=== PATIENT | male | born 1965 | race Caucasian/White ===

== ENCOUNTER 2022-11-26 06:30 | Day surgery (SDC) | payer BC ==
[2022-11-24 15:19] LABS: BASOPHILS # (AUTO) 0.04 K/uL (0.00-0.20); BASOPHILS % (AUTO) 0.7 % (0.0-5.0); EOSINOPHILS % (AUTO) 1.7 % (0.0-8.0); HEMATOCRIT 44.5 % (42-54); IMMATURE GRANULOCYTE ABSOLUTE 0.02 K/uL (0-1); LYMPHOCYTES # (AUTO) 1.6 K/uL (1.0-4.8); LYMPHOCYTES % (AUTO) 26.5 % (21.0-51.0); MEAN CORPUSCULAR HEMOGLOBIN 30.2 pg (27.0-33.0); MEAN CORPUSCULAR HGB CONC 34.2 g/dL (32.0-36.0); MEAN CORPUSCULAR VOLUME 88.5 fL (79-99); MONOCYTES # (AUTO) 0.6 K/uL (0.1-1.0); MONOCYTES % (AUTO) 9.3 % (3.0-13.0); NEUTROPHILS # (AUTO) 3.6 K/uL (1.8-7.7); NEUTROPHILS % (AUTO) 61.5 % (40.0-77.0); PLATELET COUNT (AUTO) 257 K/uL (130-400); RED BLOOD CELL COUNT(AUTO) 5.03 MIL/uL (4.50-6.20); RED CELL DISTRIBUTION WIDTH 12.7 % (11.0-15.5); WHITE BLOOD COUNT (AUTO) 5.9 K/uL (4.8-10.8)
[2022-11-24 15:27] LABS: CREATININE 1.1 mg/dL (0.5-1.5); POTASSIUM 4.2 mmol/L (3.5-5.1)
[2022-11-24 15:29] VITALS: BP 114/89; PULSE 66; RESP 12
[2022-11-24 15:29] LABS: INR 0.94 (0.85-1.15); PROTHROMBIN TIME 10.9 SEC (9.6-11.6)
[2022-11-24 15:30] LABS: PARTIAL THROMBOPLASTIN TIME 30.2 SEC (26.3-35.5)
[~2022-11-26] VITALS: Ht 182.9 cm; Wt 87.9 kg
[2022-11-26] VITALS (18 sets, daily range): BP systolic 97–138; BP diastolic 58–87; PULSE 64–76; RESP 12–16
[2022-11-26] MEDS ORDERED: LACTATED RINGERS 1000ML 1,000 ML IV ONE (06:31)
[2022-11-26] MEDS ORDERED: CEFAZOLIN SODIUM 2 GM VIAL ONE (06:31)
[2022-11-26] MEDS ORDERED: BUPIVACAINE/PF 0.5% 30ML VIAL ONE (07:21)
[2022-11-26] MEDS ORDERED: PROPOFOL 10 MG/ML 20ML VIAL IV ONE ×2 (07:23→09:14)
[2022-11-26] MEDS ORDERED: FENTANYL CITRATE PF 50 MCG/1 ML 2ML VIAL ONE ×3 (07:23→09:16)
[2022-11-26] MEDS ORDERED: ROCURONIUM 10MG/1ML SYR 10 MG/ML ML ONE (07:23)
[2022-11-26] MEDS ORDERED: MIDAZOLAM HCL 1 MG/ML 2ML VIAL ONE (07:23)
[2022-11-26] MEDS ORDERED: ROPIVACAINE 0.5% 5MG/ML 30ML IJ ONE ×2 (07:36→07:38)
[2022-11-26] MEDS ORDERED: LIDOCAINE 1%-EPI 1:100,000 20 ML VIAL IJ ONE (07:36)
[2022-11-26] MEDS ORDERED: ONDANSETRON 4MG INJ ONE (07:46)
[2022-11-26] MEDS ORDERED: KETOROLAC 30MG VIAL (30MG/ML) ONE (08:59)
[2022-11-26] MEDS ORDERED: DEXAMETHASONE SOD PHOSPHATE 4 MG/ML 1ML VIAL ONE (09:11)
[2022-11-26] MEDS ORDERED: NEOSTIGMINE 5MG/5ML SYR IV ONE (09:12)
[2022-11-26] MEDS ORDERED: GLYCOPYRROLATE 1 MG/5 ML SYRINGE ONE (09:12)
[2022-11-26] MEDS ORDERED: BUPIVACAINE/PF 0.5% 30ML VIAL INJ ONE (09:20)
== END 2022-11-26 11:10 | disposition home or self-care (01) ==
LOC: DAH 06:30
PROVIDERS: ATTEND Surgery
DX: K42.9 Umbilical hernia without obstruction or gangrene (principal); M62.89 Other specified disorders of muscle; M62.08 Separation of muscle (nontraumatic), other site; K43.6 Other and unspecified ventral hernia with obstruction, without gangrene; Z79.01 Long term (current) use of anticoagulants; Z79.899 Other long term (current) drug therapy; Z98.890 Other specified postprocedural states; Z82.49 Family history of ischemic heart disease and other diseases of the circulatory system; Z80.1 Family history of malignant neoplasm of trachea, bronchus and lung
CPT/HCPCS: 80048; 85025; 85610; 85730; 36415; 49591; 22999; 64488; A6260; J1100; A4452; J7120; J3010 ×3; J3490 ×4; J2710; J2250; J2704 ×2; J2405; J1885; J2795 ×2; J0690; A4930; A4215; A4223; A4222; A4221; A4663; A4600